=== PATIENT | female | born 1960 | race Two or more races ===

== ENCOUNTER 2020-05-23 15:29 | Outpatient (CLI) | payer SELFPAY | END 2020-05-23 15:30 | disposition critical access hospital (66) | LOC: EMS 15:29 | PROVIDERS: ATTEND Surgery | DX: R11.2 Nausea with vomiting, unspecified (principal); R53.1 Weakness; R10.12 Left upper quadrant pain; R10.13 Epigastric pain | CPT/HCPCS: A0425; A0429 ==

== ENCOUNTER 2020-05-23 15:50 | Emergency (ER) | payer SELFPAY ==
[2020-05-23] MEDS ORDERED: SODIUM CHLORIDE 0.9% 1,000 ML IV STA ×2 (16:22)
[2020-05-23] MEDS ORDERED: ONDANSETRON 4 MG/2 ML VIAL IVP STA (16:22)
--- NOTE | 2020-05-23 16:22 | ED Physician Documentation ---
PD HPI ABD PAIN - Stated complaint Stated Complaint: ABD PAIN - History obtained from History obtained from: Patient, Friend - History of Present Illness Timing - onset: How many days ago (8) Timing - duration: Days (8) Timing - details: Gradual onset Pain level max: 8 Pain level now: 5 Quality: Aching, Pain Location: Epigastric Radiation: No: Chest, , Lower back, Left flank, Left shoulder, Right flank, Right shoulder, Upper back Improved by: Other (nothing) Worsened by: Eating Associated symptoms: Nausea, Vomiting. No: Fever, Hematemesis, Diarrhea, Constipation, Melena, Hematochezia, Dysuria, Hematuria Similar symptoms before: Has not had sx before Recently seen: Not recently seen Review of Systems Ten Systems: 10 systems reviewed and negative Constitutional: denies: Fever, Chills Nose: denies: Rhinorrhea / runny nose, Congestion Cardiac: denies: Chest pain / pressure Respiratory: denies: Cough : denies: Dysuria Skin: denies: Rash Musculoskeletal: denies: Neck pain, Back pain Neurologic: denies: Headache PD PAST MEDICAL HISTORY - Past Medical History Past Medical History: Yes Endocrine/Autoimmune: HyPOthyroidism - Past Surgical History Past Surgical History: Yes General: Bowel surgery (perforated colonoscopy) /[employer] REPAIRER: Hysterectomy - Present Medications Home Medications: Ambulatory Orders Medication Instructions Recorded Confirmed Azithromycin [Zithromax] 250 mg PO DAILY #4 tablet 05/23/20 Cefdinir 300 mg PO BID #20 capsule 05/23/20 Famotidine [Pepcid] 20 mg PO BID #60 tablet 05/23/20 - Allergies Allergies/Adverse Reactions: Allergies Allergy/AdvReac Type Severity Reaction Status Date / Time No Known Drug Allergies Allergy Verified 05/23/20 16:37 - Living Situation Living Arrangement: reports: At home - Social History Does the pt smoke?: No Does the pt drink ETOH?: No Does the pt have substance abuse?: No - Family History Family history: reports: Non contributory PD ED PE NORMAL - Vitals Vital signs reviewed: Yes - General General: Alert and oriented X 3, No acute distress, Well developed/nourished - HEENT HEENT: PERRL, Moist mucous membranes - Neck Neck: Supple, no meningeal sign - Cardiac Cardiac: RRR, Strong equal pulses - Respiratory Respiratory: No respiratory distress, Other (bibasilar crackles) - Abdomen Abdomen: Soft, Non distended, Other (TTP epigastric. no peritoneal signs.) - Back Back: No CVA TTP - Derm Derm: Warm and dry - Extremities Extremities: No edema - Neuro Neuro: Alert and oriented X 3 - Psych Psych: Normal mood, Normal affect Results - Vitals Vitals: Vital Signs - 24 hr 05/23/20 05/23/20 05/23/20 16:03 18:36 19:02 Temperature 37 C Heart Rate 78 80 80 Respiratory 30 H 30 H 30 H Rate Blood Pressure 115/72 112/48 L 112/48 L O2 Saturation 96 95 95 05/23/20 05/23/20 19:43 20:05 Temperature Heart Rate 82 79 Respiratory 16 16 Rate Blood Pressure 120/62 118/74 O2 Saturation 96 97 Oxygen O2 Source Room air - Labs Labs: Laboratory Tests 05/23/20 05/23/20 05/23/20 16:21 16:21 18:36 WBC 5.0 RBC 4.65 Hgb 13.8 Hct 41.1 MCV 88.4 MCH 29.7 MCHC 33.6 RDW 13.4 Plt Count 172 MPV 9.4 Neut # (Auto) 4.2 Lymph # (Auto) 0.5 L [place] # (Auto) 0.3 Eos # (Auto) 0.0 Baso # (Auto) 0.0 Absolute Nucleated RBC 0.00 Nucleated RBC % 0.0 Sodium 141 Potassium 3.7 Chloride 102 Carbon Dioxide 24 Anion Gap 15.0 H BUN 11 Creatinine 0.5 Estimated GFR (MDRD) 127 Glucose 113 H Calcium 8.5 Total Bilirubin 1.0 AST 26 ALT 25 Alkaline Phosphatase 67 Total Protein 7.3 Albumin 3.8 Globulin 3.5 Albumin/Globulin Ratio 1.1 Lipase 30 Urine Color YELLOW Urine Clarity CLEAR Urine pH 7.5 Ur Specific [place] 1.010 Urine Protein NEGATIVE Urine Glucose (UA) NEGATIVE Urine Ketones 15 H Urine Occult Blood NEGATIVE Urine Nitrite NEGATIVE Urine Bilirubin NEGATIVE Urine Urobilinogen 0.2 (NORMAL) Ur Leukocyte Esterase NEGATIVE Ur Microscopic Review NOT INDICATED Urine Culture Comments NOT INDICATED - Rads (name of study) CT abd/pelvis Radiology: Prelim report reviewed, EMP read contemporaneously, See rad report (No acute intra-abdominal abnormality. Bibasilar airspace and interstitial opacities. The appearance is nonspecific but can be seen in setting of atypical infections, including of viral respiratory infections. ) cxr Radiology: Prelim report reviewed, EMP read contemporaneously, See rad report (Mild age indeterminate diffuse groundglass opacities which could represent atelectasis, low-grade chronic interstitial changes versus early pulmonary edema. If there is persistent clinical diagnostic uncertainty, recommend short interval follow-up chest radiographs after treatment for further assess) PD MEDICAL DECISION MAKING - ED course Complexity details: reviewed results, re-evaluated patient, considered differential, d/w patient, d/w family ED course: Unclear etiology of the patient's symptoms. She appears to have an atypical infection in her lungs. Coronavirus testing was sent. Her epigastric pain resolved with a GI cocktail. Will place on an H2 deysi for home. We will also place her on antibiotics for her lungs. We will have her follow-up closely with a primary care provider locally. Patient is well-appearing, nontoxic. No hypoxia. No respiratory distress. No significant lab abnormalities. Feels better after antibiotics and IV fluids. Abdomen is soft, nontender nondistended on serial exam. Patient counseled regarding signs and symptoms for which I believe and urgent re-evaluation would be necessary. Patient with good understanding of and agreement to plan and is comfortable going home at this time This document was made in part using voice recognition software. While efforts are made to proofread this document, sound alike and grammatical errors may occur. contracting engineer used Departure - Departure Disposition: 01 Home, Self Care Clinical Impression: Atypical pneumonia Gastritis Qualifiers: Gastritis type: unspecified gastritis Chronicity: acute Gastritis bleeding: without bleeding Qualified Code(s): K29.00 - Acute gastritis without bleeding Condition: Good Instructions: ED Gastritis, ED Pneumonia Adult Follow-Up: Samantha Tapia MD [Provider Admit Priv/Credential] - [facility] [place] [Provider Group] Otto Wills MD [Provider Admit Priv/Credential] - Prescriptions: Cefdinir 300 mg PO BID #20 capsule Famotidine [Pepcid] 20 mg PO BID #60 tablet Azithromycin [Zithromax] 250 mg PO DAILY #4 tablet Comments: Take all antibiotics until gone. Return if you worsen. follow up with a primary care doctor. Discharge Date/Time: 05/23/20 20:10
[2020-05-23 16:33] LABS: BASOPHILS % (AUTO) 0.2 %; EOSINOPHILS % (AUTO) 0.2 %; HGB - HEMOGLOBIN 13.8 g/dL (12.0-16.0); LYMPHOCYTES # (AUTO) 0.5 10^3/uL (1.5-3.5); LYMPHOCYTES % (AUTO) 9.9 %; MEAN CORPUSCULAR HEMOGLOBIN 29.7 pg (27.0-31.0); MEAN CORPUSCULAR HGB CONC 33.6 g/dL (32.0-36.0); MEAN CORPUSCULAR VOLUME 88.4 fL (81.0-99.0); MEAN PLATELET VOLUME 9.4 fL (7.9-10.8); MONOCYTES # (AUTO) 0.3 10^3/uL (0.0-1.0); MONOCYTES % (AUTO) 5.2 %; NEUTROPHILS # (AUTO) 4.2 10^3/uL (1.5-6.6); NEUTROPHILS % (AUTO) 83.7 %; PLT - PLATELET COUNT 172 10^3/uL (130-450); RED BLOOD COUNT 4.65 10^6/uL (4.20-5.40); RED CELL DISTRIBUTION WIDTH 13.4 % (12.0-15.0)
[2020-05-23 16:41] LABS: ALBUMIN 3.8 g/dL (3.2-5.5); ALBUMIN/GLOBULIN RATIO 1.1 (1.0-2.2); CALCIUM 8.5 mg/dL (8.5-10.3); CREATININE 0.5 mg/dL (0.4-1.0); TOTAL PROTEIN 7.3 g/dL (6.7-8.2)
[2020-05-23] MEDS ORDERED: IOVERSOL 320 100 ML VIAL IVP ONE ×2 (16:43→17:29)
--- NOTE | 2020-05-23 17:44 | CT Report ---
PROCEDURE: Abdomen/Pelvis W INDICATIONS: abd pain, vomiting CONTRAST: IV CONTRAST: Optiray 320 ml: 100 PO CONTRAST: *NO PO CONTRAST TECHNIQUE: After the administration of 100 mL Optiray 320 and oral contrast, 5 mm thick sections acquired from t he diaphragms to the symphysis. 5 mm thick coronal and sagittal reformats were acquired. For radiat ion dose reduction, the following was used: automated exposure control, adjustment of mA and/or kV a ccording to patient size. COMPARISON: None. FINDINGS: Image quality: Excellent. ABDOMEN: Lung bases: Ill-defined bibasilar airspace and interstitial opacities.. Heart size is normal. Solid organs: Liver and spleen are normal in size and enhancement. Gallbladder is unremarkable. Bi liary system is non dilated. Pancreas enhances normally. No adrenal nodules. Kidneys demonstrate n ormal size and enhancement, without hydronephrosis. 2.4 cm simple fluid density cyst of the right ki dney. Peritoneum and bowel: Bowel loops demonstrate normal wall thickness and caliber. Normal appendix. N o free fluid or air. Nodes and vessels: No retroperitoneal or mesenteric adenopathy by size criteria. Aorta and inferior vena cava are normal in size. Miscellaneous: No ventral hernias. PELVIS: Genitourinary: Bladder wall thickness is normal. Surgically absent uterus. Miscellaneous: No inguinal hernias or adenopathy. Bones: No suspicious bony lesions. No vertebral body compression fractures. IMPRESSION: No acute intra-abdominal abnormality. Bibasilar airspace and interstitial opacities. The appearance is nonspecific but can be seen in setti ng of atypical infections, including of viral respiratory infections. Reviewed by: David Ziegler on 05/23/2020 4:43 PM AKLAMONTE Approved by: David Ziegler on 05/23/2020 4:43 PM AKDT Station ID: [id number]
[2020-05-23] MEDS ORDERED: SUCRALFATE 1 GM/10 ML UDC PO STA (18:24)
[2020-05-23] MEDS ORDERED: MAG HYDROX/AL HYDROX/SIMETH 30 ML UDC PO STA (18:24)
[2020-05-23] MEDS ORDERED: LIDOCAINE VISCOUS 2% 15 ML UDC MM STA (18:24)
[2020-05-23 18:41] LABS: BILIRUBIN,URINE NEGATIVE (NEGATIVE); GLUCOSE, URINE (UA) NEGATIVE (NEGATIVE); KETONES,URINE (UA) 15 mg/dL (NEGATIVE); LEUKOCYTE ESTERASE, URINE NEGATIVE (NEGATIVE); NITRITE,URINE NEGATIVE (NEGATIVE); OCCULT BLOOD,URINE NEGATIVE (NEGATIVE); PH,URINE 7.5 PH (5.0-7.5); PROTEIN,URINE NEGATIVE (NEGATIVE); UROBILINOGEN,URINE 0.2 (NORMAL) E.U./dL (NORMAL)
[2020-05-23 18:44] LABS: CLARITY,URINE CLEAR (CLEAR)
--- NOTE | 2020-05-23 18:50 | XRAY Report ---
PROCEDURE: Chest 1 View X-Ray INDICATIONS: abnormal abd CT of lungs TECHNIQUE: One view of the chest was acquired. COMPARISON: CT abdomen pelvis dated same day. FINDINGS: Surgical changes and devices: None. Lungs and pleura: No pleural effusions or pneumothorax. No acute consolidation however ill-defined d iffuse groundglass opacities Mediastinum: Mediastinal contours appear normal. Heart size is normal. Bones and chest wall: No suspicious bony lesions. Overlying soft tissues appear unremarkable. IMPRESSION: Mild age indeterminate diffuse groundglass opacities which could represent atelectasis, low-grade chr onic interstitial changes versus early pulmonary edema. If there is persistent clinical diagnostic un certainty, recommend short interval follow-up chest radiographs after treatment for further assessmen t. Reviewed by: Liam Hester MD on 05/23/2020 6:49 PM PDT Approved by: Liam Hester MD on 05/23/2020 6:49 PM PDT Station ID: [id number]
[2020-05-23] MEDS ORDERED: AZITHROMYCIN 250 MG TABLET PO STA (19:44)
[2020-05-23] MEDS ORDERED: AMOXICILLIN 250 MG CAPSULE PO STA (19:45)
[2020-05-23 20:23] VITALS: BP 118/74
== END 2020-05-23 20:10 | disposition home or self-care (01) ==
LOC: ED 15:50
DX: U07.1 COVID-19 (principal); J12.89 Other viral pneumonia; K29.00 Acute gastritis without bleeding
CPT/HCPCS: 36415; 71045; 74177; 80053; 81003; 83690; 85025; 87635; 96361; 96374; 99284; A9270; Q9967; 81001; 87086